=== PATIENT | male | born 1990 | race Caucasian/White ===

== ENCOUNTER 2018-02-02 13:40 | Emergency (ER) | payer SELFPAY ==
[~2018-02-02] VITALS: Ht 175.3 cm; Wt 77.1 kg
--- NOTE | 2018-02-02 13:40 | NUR ---
SHRUTI FROM HOME CC OF RIGHT TESTICULAR PAIN SINCE 10AM TODAY 7/10 PAIN SCALE WHILE MOVING , SHARP IN CHARACTERISTICS . VSS , WILL CONTINUE TO MONITOR Addendum: 02/02/18 at 1412 by AFIA KATHLEEN WILLIS AT BEDSIDE , EVALUATING THE PATIENT , URINE SPECIMEN OBTAINED , LABELED AND SENT TO LAB.
[2018-02-02] MEDS ORDERED: ACETAMINOPHEN 325 MG TABLET ONE (14:14)
[2018-02-02] MEDS ORDERED: ACETAMINOPHEN 325 MG TABLET PO ONE (14:30)
[2018-02-02 14:56] LABS: APPEARANCE,URINE Slightly Cloudy (CLEAR); BILIRUBIN,URINE Negative (NEGATIVE); BLOOD, URINE Negative Ery/uL (NEGATIVE); COLOR,URINE Yellow (YELLOW); KETONES,URINE Negative (NEGATIVE); LEUKOCYTE ESTERASE ,URINE Negative (NEGATIVE); NITRITE, URINE Negative (NEGATIVE); PH,URINE 7.5 (5.0-8.0); PROTEIN,URINE Negative (NEGATIVE); UGLUCOSE Negative (NEGATIVE); UROBILINOGEN,URINE 0.2 EU/dL (0.2)
[2018-02-02 15:45] VITALS: BP 128/81
== END 2018-02-02 15:46 | disposition home or self-care (01) ==
LOC: ER 13:44
DX: N50.811 Right testicular pain (principal); R59.1 Generalized enlarged lymph nodes
CPT/HCPCS: 76870; 81001; 87491; 87591; 99285; A4606; Z7610; 81000-TC